=== PATIENT | female | born 1990 | race American Indian/Alaskan Native ===

== ENCOUNTER 2017-05-13 19:58 | Emergency (ER) | payer MEDICAID ==
[2017-05-13] MEDS ORDERED: TORADOL IM ONE (23:53)
[2017-05-13] MEDS ORDERED: DECADRON IM ONE (23:53)
[2017-05-14] MEDS ORDERED: TORADOL ONE
--- NOTE | 2017-05-14 00:03 | Emergency Department Report ---
ED ENT HPI - General Chief complaint: Sore Throat Stated complaint: SORE THROAT Time Seen by Provider: 05/13/17 23:44 Source: patient Mode of arrival: Ambulatory Limitations: No Limitations - History of Present Illness MD complaint: sore throat - Related Data Previous Rx's Medication Instructions Recorded Last Taken Type Azithromycin [Zithromax Z-NAMITA] 250 mg PO DAILY #6 tablet 03/01/16 Unknown Rx Fluticasone [Flonase] 1 spray NS QDAY #1 bottle 03/01/16 Unknown Rx Ibuprofen [Motrin] 600 mg PO Q8H PRN #15 tablet 03/01/16 Unknown Rx predniSONE [Deltasone] 50 mg PO QAM #5 tablet 03/01/16 Unknown Rx Allergies Allergy/AdvReac Type Severity Reaction Status Date / Time No Known Allergies Allergy Unverified 03/01/16 08:04 ED Dental HPI - General Chief complaint: Sore Throat Stated complaint: SORE THROAT Time Seen by Provider: 05/13/17 23:44 Source: patient Mode of arrival: Ambulatory Limitations: No Limitations - Related Data Previous Rx's Medication Instructions Recorded Last Taken Type Azithromycin [Zithromax Z-NAMITA] 250 mg PO DAILY #6 tablet 03/01/16 Unknown Rx Fluticasone [Flonase] 1 spray NS QDAY #1 bottle 03/01/16 Unknown Rx Ibuprofen [Motrin] 600 mg PO Q8H PRN #15 tablet 03/01/16 Unknown Rx predniSONE [Deltasone] 50 mg PO QAM #5 tablet 03/01/16 Unknown Rx Allergies Allergy/AdvReac Type Severity Reaction Status Date / Time No Known Allergies Allergy Unverified 03/01/16 08:04 ED Review of Systems ROS: Stated complaint: SORE THROAT Other details as noted in HPI ED Past Medical Hx - Past Medical History Previous Medical History?: Yes Hx Psychiatric Treatment: (ADHD, BiPolar, Depression) - Surgical History Past Surgical History?: Yes Additional Surgical History: C-Sec x 1 - Social History Smoking Status: Current Every Day Smoker Substance Use Type: Alcohol, Marijuana - Medications Home Medications: Home Medications Medication Instructions Recorded Confirmed Last Taken Type Azithromycin [Zithromax Z-NAMITA] 250 mg PO DAILY #6 tablet 03/01/16 Unknown Rx Fluticasone [Flonase] 1 spray NS QDAY #1 bottle 03/01/16 Unknown Rx Ibuprofen [Motrin] 600 mg PO Q8H PRN #15 tablet 03/01/16 Unknown Rx predniSONE [Deltasone] 50 mg PO QAM #5 tablet 03/01/16 Unknown Rx ED Physical Exam - General Limitations: No Limitations ED Course Vital Signs 05/13/17 05/13/17 20:28 23:20 Temperature 99.2 F 98.7 F Pulse Rate 75 65 Respiratory 18 18 Rate Blood Pressure 123/78 Blood Pressure 107/81 [Right] O2 Sat by Pulse 100 100 Oximetry Critical care attestation.: If time is entered above; I have spent that time in minutes in the direct care of this critically ill patient, excluding procedure time. ED Disposition Condition: Stable Referrals: PRIMARY CARE, [Primary Care Provider] - 3-5 Days
[2017-05-14 00:56] VITALS: BP 147/94
== END 2017-05-14 00:56 | disposition home or self-care (01) ==
LOC: ED 19:58
DX: J02.9 Acute pharyngitis, unspecified (principal); F90.9 Attention-deficit hyperactivity disorder, unspecified type; F31.9 Bipolar disorder, unspecified; F17.200 Nicotine dependence, unspecified, uncomplicated; Z12.10 Encounter for screening for malignant neoplasm of intestinal tract, unspecified
CPT/HCPCS: 96372; 99282; J1100; J1885

== ENCOUNTER 2017-10-14 12:51 | Emergency (ER) | payer MEDICAID ==
[2017-10-14 13:03] VITALS: BP 115/61
--- NOTE | 2017-10-14 13:32 | XRay Report ---
RIGHT THUMB, 3 views: History: Right thumb injury. The bony architecture is intact. Bony alignment is normal. No soft tissue abnormalities are seen. The joint spaces appear preserved. IMPRESSION: Unremarkable right thumb.
== END 2017-10-14 16:15 | disposition left against medical advice (07) ==
LOC: ED 12:51
DX: M79.644 Pain in right finger(s) (principal); Z53.21 Procedure and treatment not carried out due to patient leaving prior to being seen by health care provider